=== PATIENT | male | born 1975 | race Caucasian/White ===

== ENCOUNTER → 2019-02-11 | Outpatient (CLI) | payer BC, SELFPAY ==
[2015-03-07 12:46] VITALS: BMI 41.8
[2019-02-11 09:59] LABS: Hematocrit 45.3 % (40-54); Hemoglobin 15.5 g/dl (13.0-16.5); Mean Corp Hgb Conc 34.2 g/gl (32-36); Mean Corpuscular Hgb 29.8 pg (27.0-32.0); Mean Corpuscular Volume 87.1 fL (80-94); Mean Platelet Vol. 9.8 fl (6.2-12.0); Platelet Count 224 K/mm3 (150-450); RBC Distribution Width CV 13.7 % (11.6-14.6); RBC Distribution Width SD 43.5 fl (35.1-43.9); White Blood Count 12.2 K/mm3 (4.4-11.0)
[2019-02-11 10:01] LABS: Scan Indicated on CBC? Y/N NO
[2019-02-11 10:28] LABS: Anion Gap 6 (5-15); BUN 15 mg/dL (7-18); BUN/Creat Ratio 14.7 RATIO (10-20); Calcium,Total 8.5 mg/dL (8.5-10.1); Chloride 103 mmol/L (98-107); Creatinine, Serum 1.02 mg/dL (0.70-1.30); EST Glomerular Filtration Rate 85 mL/min (>60); Est Glom Filt Rate - Afr Amer 103 mL/min (>60); Glucose 260 mg/dL (74-106); Potassium 3.7 mmol/L (3.5-5.1); Sodium Level 137 mmol/L (136-145)
== END | disposition home or self-care (01) ==
LOC: LAB.FUTURE 09:07
PROVIDERS: Referring Provider Orthopaedic Surgery; Visit Provider Orthopaedic Surgery
DX: Z01.818 Encounter for other preprocedural examination (principal); E08.21 Diabetes mellitus due to underlying condition with diabetic nephropathy
CPT/HCPCS: 36415; 80048; 83036; 85027

== ENCOUNTER → 2019-04-25 14:35 | Outpatient (CLI) | payer BC, SELFPAY ==
[2015-03-07 12:46] VITALS: BMI 41.8
--- NOTE | 2019-04-25 15:00 | EKG12_ITS ---
Test Reason : PRE-OP Blood Pressure : / mmHG Vent. Rate : 090 BPM Atrial Rate : 090 BPM P-R Int : 156 ms QRS Dur : 086 ms QT Int : 350 ms P-R-T Axes : 061 073 033 degrees QTc Int : 428 ms Normal sinus rhythm Normal ECG Confirmed by ELVIS MAGAÑA, LEBRON ([id number]), editor house organ MAREK MOREL ([id number]) on 04/29/2019 11:13:50 AM Referred By: Omar Tucker Confirmed By:LEBRON LEAL MD
[2019-04-25 15:32] LABS: Absolute Neutrophil Count 6.2 X10^3/uL (2.0-7.7); Basophil# 0.08 X10^3/uL; Basophil% 0.8 % (0-1); Eosinophil# 0.44 X10^3/uL; Eosinophils% 4.2 % (0-5); Hematocrit 44.7 % (40-54); Hemoglobin 15.1 g/dL (13.0-16.5); Mean Corp Hgb Conc 33.8 g/dL (32-36); Mean Corpuscular Hgb 30.1 pg (27.0-32.0); Mean Corpuscular Volume 89.2 fL (80-94); Mean Platelet Vol. 9.7 fl (6.2-12.0); Monocyte# 0.93 X10^3/uL; NRBC Flagged by Analyzer 0 % (0-5); Neutrophil # 6.17 X10^3/uL (2.7-7.7); Neutrophil % 59.5 % (47-70); Platelet Count 253 K/mm3 (150-450); RBC Distribution Width CV 13.6 % (11.6-14.6); RBC Distribution Width SD 44.1 fl (35.1-43.9); Red Blood Count 5.01 M/mm3 (4.6-6.2); White Blood Count 10.4 K/mm3 (4.4-11.0)
[2019-04-25 16:02] LABS: Anion Gap 9 (5-15); BUN 13 mg/dL (7-18); BUN/Creat Ratio 11.3 RATIO (10-20); Calcium,Total 8.8 mg/dL (8.5-10.1); Chloride 107 mmol/L (98-107); Creatinine, Serum 1.15 mg/dL (0.70-1.30); EST Glomerular Filtration Rate 74 mL/min (>60); Est Glom Filt Rate - Afr Amer 89 mL/min (>60); Glucose 277 mg/dL (74-106); Potassium 4.1 mmol/L (3.5-5.1); Sodium Level 140 mmol/L (136-145)
== END ==
PROVIDERS: Referring Provider Physician Assistant; Visit Provider Physician Assistant
DX: Z01.810 Encounter for preprocedural cardiovascular examination (principal); Z01.818 Encounter for other preprocedural examination; E11.9 Type 2 diabetes mellitus without complications
CPT/HCPCS: 36415; 80048; 85025; 93005

== ENCOUNTER 2019-05-21 11:00 | Outpatient (RCR) | payer BC, SELFPAY ==
--- NOTE | 2019-05-07 11:59 | HP.PTEVAL ---
Patient's Visit Information WHITNEY BUCKLEY is a 44 year old M referred to Physical Therapy by Omar Tucker PA-C with a diagnosis of L knee pain. Date of Evaluation: 05/07/19 Physical Therapist: Savi Carcamo DPT - Visit Plan Frequency: 1x/Week Duration: 4 Weeks Plan: Focus on LE/core s/s, gait & stair training, improving ROM, and decreasing pain. 05/07/19 HEP Prescribed: Heel Prop, Seated Heel Slide, Supine Heel Slide, SLR, Quad Sets - Subjective Findings: Knee surgery - arthroscopy (same day op) last (05/01/19) L knee. Removed compression stocking yesterday (05/06/19). Neuropathy in B feet as long as I can remember - DM, RLS, Crrently. Orthoscopy - outpatient surgery. 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 Gradually gottn better. Reports to be performing therapy exercises at home gotten from YouTube. 2 story home - usually stays downstairs, 30 steps upstairs, pain & issues asc/desc. 4-5 steps into the house. Current pain 6/10. Worst 8/10 Aggravating factors: stairs, walking, sitting, sleeping. Best: 3/10 Relieving factors: ice, home exercises. Describes pain being there in front of knee. Pain in entire L LE as radiating prior to operation. Intermittent feeling of heaviness at top of knee. Reports long hx of N/T. Currently sleeps in a recliner, wakes up stiff in the mornings. Home exercise: Stairs, walking around the driveway. Currently, just sitting at home mostly. Does have help at home. PMH/meds: no significant changes. Follow-Up w/ surgeon 05/14/19 - Objective Posture: FH, RS corrected w/ V/C, but not maintained. Stairs: asc - reciprocal pattern w/ excessive use of both HR, used toes & HR's to proprel self to next step, R foot pronation. Desc - lacked eccentric control, reciprocal pattern. Was educated on asc/desc stairs slower/properly. Gait: decreased arianna, slight toe-out, pes planus- no AD. HR/TR: 50% diminished w/ pain (B UE support). SLS: L - unable d/t pain- full weight shift. ROM: Ankle Df 5 degrees, PF 15 degrees, Eversion 20 degrees Inversion 15 degrees, Knee flex 65 degrees ext 6 degrees, Hip WFL. Strength: Ankle DF/PF 4+/5, Eversion/Inversion 3+/5 (painful), Knee - Not tested d/t pain, Hip: 5/5 t/o, Core Fair. Flexibility: Gastroc severe, Hamstring severe. Sensation: diminshed at L pinky toe to gross B touch, all others WNL. Incision: no signs of infection - healing appropriately. Palpation: TTP at plateau anterior. Giirth: Patella 44 cm, 6cm above 53 cm, 6 cm below 41 cm - Goals Goal 1:: Pt. will be I w/ HEP & progression Goal Time Frame: 2-4 Weeks Goal 2:: Pt. will maintain proper posture t/o tx session to demo increased core s/s Goal Time Frame: 4-6 Weeks Goal 3:: Pt. will be able to reach 120 knee flexion ROM Goal Time Frame: 4-6 Weeks Goal 4:: Pt. will be able to demo 5/5 strength throughout L LE Goal Time Frame: 4-6 Weeks Goal 5:: Pt. will amb. >300 ft. w/ normalized gait pattern Goal Time Frame: 4-6 Weeks Goal 6:: Pt. will asc/desc stairs w/ reciprocal pattern & use of no HR Goal Time Frame: 4-6 Weeks - Rehabilitation Potential Physical Therapy Diagnosis: s/p presents w/ hypomobility, poor posture decrease L LE ROM, edema, antlagic gait, and pain which leads to decreased ability to complete work related activites. Rehabilitation Potential: Good - Anticipated Interventions Patient/Client Instruction: Educate patient on: Condition, Plan of Care For the Purpose of:: To decrease pain Therapeutic Exercise to Include: Strength training, Endurance training, Balance training, Body mechanics, Postural training, Flexibilty training, Gait and locomotor training, Passive ROM, Active ROM, Dynamic Lumbar Stabilization For the Purpose of:: To improve muscle performance and motor function Functional Training to Include: Gait training For the Purpose of:: To improve ability to perform ADL's TENS: Yes Cryotherapy (ice pack, ice massage): Yes Thermo therapy (hot pack): Yes Thank you for the opportunity to evaluate your patient. For Medicare and Medicare HMO plans, please review the plan of care and approve it. It will need to be FAXED BACK to us at [phone] for Medicare purposes. For Medicare only, by signing this I certify the plan of care. Please let me know if there are questions or concerns regarding this plan of care. Physician Signature: Date:
--- NOTE | 2019-07-23 10:38 | HP.PT.NRP ---
HP - Discharge Summary (1) - Patient Information WHITNEY BUCKLEY was seen in my office for initial evaluation on 05/07/19. The following Plan of Care was established for this patient: Initial Frequency: 1x/Week Initial Duration: 4 Weeks - Anticipated Interventions Patient/Client Instruction: Educate patient on: Condition, Plan of Care For the Purpose of:: To decrease pain Therapeutic Exercise to Include: Strength training, Endurance training, Balance training, Body mechanics, Postural training, Flexibilty training, Gait and locomotor training, Passive ROM, Active ROM, Dynamic Lumbar Stabilization For the Purpose of:: To improve muscle performance and motor function Functional Training to Include: Gait training For the Purpose of:: To improve ability to perform ADL's TENS: Yes Cryotherapy (ice pack, ice massage): Yes Thermo therapy (hot pack): Yes This patient was last seen in our office . Pertinent comments regarding their Physical therapy will appear below: Patient has not attended therapy in over 8 weeks, appropriate for d/c and return to MD for further evaluation as needed. At this point I will be discontinuing this patient from physical therapy. I would be happy to see this patient again in the future if found appropriate by the physician. Thank you! THEODORE PerezT
== END 2019-05-21 19:00 | disposition home or self-care (01) ==
LOC: PT 11:00
PROVIDERS: Referring Provider Physician Assistant; Visit Provider Physician Assistant
DX: M17.12 Unilateral primary osteoarthritis, left knee (principal); S83.232D Complex tear of medial meniscus, current injury, left knee, subsequent encounter
CPT/HCPCS: 97110; 97161

== ENCOUNTER 2019-11-27 17:25 | Emergency (ER) | payer BC, SELFPAY ==
[2019-11-27 17:25] VITALS: BP 160/107; PULSE 108; RESP 16; TEMP 36.7; O2SAT 96; BMI 36.3
--- NOTE | 2019-11-27 18:32 | RAD_ITS ---
STUDY: X-RAY - LEFT FOOT CLINICAL: Male, 44 years old. Concern for osteomyelitis, 1st toe TECHNIQUE: 2 view(s) of the foot. COMPARISON: None. FINDINGS: There is a plantar calcaneal spur. Normal visualized subtalar, talonavicular, calcaneocuboid, tarsal and tarsometatarsal articulations. Normal metatarsi. Normal metatarsophalangeal joint of the great toe. Normal tibial and fibular sesamoid bones. Normal interphalangeal joint of the great toe. Normal phalanges of the great toe. Normal second through fifth metatarsophalangeal joints. Normal interphalangeal joints and phalanges of the lesser toes. The soft tissue structures are unremarkable. RAD/Foot 2 Views IMPRESSION: Limited 2 view study of the left foot shows no acute abnormality or definite destructive lesion. Electronically Signed: Tobin Valverde MD at 18:44 EDT , Service support ,
[2019-11-27 18:48] LABS: ALB/GLOB Ratio 0.8 RATIO (0.9-2.4); AST(SGOT) 19 U/L (15-37); Absolute Lymphocyte Count 3.41 X10^3/uL (0.83-4.51); Absolute Neutrophil Count 7.6 X10^3/uL (2.0-7.7); Alanine Aminotransfer ALT/SGPT 42 U/L (16-61); Albumin, Serum 3.4 g/dL (3.2-5.0); Alkaline Phosphatase 154 U/L (45-117); Anion Gap 8 (5-15); BUN 8 mg/dL (7-18); BUN/Creat Ratio 7.5 RATIO (10-20); Basophil% 0.8 % (0-1); Calcium,Total 8.7 mg/dL (8.5-10.1); Chloride 100 mmol/L (98-107); Creatinine, Serum 1.07 mg/dL (0.70-1.30); EST Glomerular Filtration Rate 80 mL/min (>60); Eosinophil# 0.44 X10^3/uL; Eosinophils% 3.5 % (0-5); Est Glom Filt Rate - Afr Amer 97 mL/min (>60); Glucose 360 mg/dL (74-106); Hematocrit 49.8 % (40-54); Hemoglobin 16.7 g/dL (13.0-16.5); Lymphocyte # 3.41 X10^3/ul (4.0); Lymphocyte % 27.2 % (19-41); Mean Corp Hgb Conc 33.5 g/dL (32-36); Mean Corpuscular Hgb 29.8 pg (27.0-32.0); Mean Corpuscular Volume 88.8 fL (80-94); Mean Platelet Vol. 9.5 fl (6.2-12.0); Monocyte# 0.82 X10^3/uL; Monocyte% 6.5 % (0-10); NRBC Flagged by Analyzer 0 % (0-5); Neutrophil % 60.8 % (47-70); Platelet Count 251 K/mm3 (150-450); Potassium 4.1 mmol/L (3.5-5.1); Protein, Total 7.4 g/dL (6.4-8.2); RBC Distribution Width CV 13.7 % (11.6-14.6); RBC Distribution Width SD 43.9 fl (35.1-43.9); Red Blood Count 5.61 M/mm3 (4.6-6.2); Sodium Level 135 mmol/L (136-145); White Blood Count 12.5 K/mm3 (4.4-11.0)
[2019-11-27 19:01] LABS: Erythrocyte Sedimentation Rate 27 mm/hr (0-15)
--- NOTE | 2019-11-27 19:12 | ED.DCSUM_ITS ---
History of Present Illness Chief Complaint: Cellulitis Narrative: Patient is a 44-year-old male with history of poorly controlled diabetes mellitus presenting with a wound to his left great toe. Patient states he was wearing tight fitting socks and his son's wedding 2 weeks ago. Since then he is noticed he is had a blister and wound at the distal aspect of his left great toe. He does not have significant pain with it. He does have neuropathy symptoms it is hard to tell. They did an x-ray which showed possible early myelitis. Patient was sent to the emergency room for further evaluation. Patient denies any drainage from the wound. He has been putting bacitracin ointment on it and soaking it. Patient actually feels that the toe is been getting slightly better. He did have redness from the base of the great toe distally but that seems to improved. He denies any prior history of osteomyelitis. He denies any systemic symptoms such as fever, chills, nausea, vomiting or malaise. 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 Past Medical History - Allergies and Home Meds Allergies/Adverse Reactions: Allergies No Known Allergies Allergy (Verified 11/27/19 17:27) Primary Care Physician: Kale Xavier NP-C [Primary Care Provider] - Past Medical History: - - Diabetes mellitus Surgical History: - - plastic surgery of scalp, sleep apnea deviated septal surgery Smoking Status: Current every day smoker - Family History Maternal Family History: Reports: No pertinent history, - - diabetes, skin abcess in skin Paternal Family History: Reports: - - frontal lobe dementia Review of Systems General: Denies: Chills, Fever, Sweats Eyes: Denies: Visual changes - bilaterally, Diplopia ENT: Denies: Rhinorrhea, Sore throat Cardiovascular: Denies: Chest pain, Palpitations Respiratory: Denies: Dyspnea, Cough, Dyspnea on exertion Gastrointestinal: Denies: Abdominal pain, Nausea, Vomiting, Diarrhea, Melena, Hematochezia Genitourinary: Denies: Dysuria, Hematuria, Frequency Musculoskeletal: Denies: Back pain, Extremity Pain Skin: Reports: Wounds - Left great toe. Denies: Rash Neurological: Denies: Headache, Weakness, Numbness Physical Exam Vital Signs/Narrative: Vital Signs Temp Pulse Resp BP Pulse Ox 11/27/19 17:25 98.1 F 108 H 16 160/107 H 96 Inital Vital Signs reviewed: Yes General: Well nourished, Well developed, No Acute Distress Head: Normocephalic, Atraumatic Eyes: Perrl, EOMI ENT: Moist mucous membranes, No rhinorrhea Neck: Supple, Nontender Cardiovascular: Regular rate, Regular rhythm, No murmurs, - - 1+ bilateral DP pu lses, 2-second capillary refill of the toes Respiratory: No distress, CTA bilaterally, Chest nontender Abdomen: Soft, Nontender, Nondistended Back: Nontender, Normal Inspection Extremities: Nontender, No edema Skin: Normal color, - - White discoloration of the left great toe distal pad, almost appears macerated. No active drainage. No significant tenderness, fluctuance or erythema.. At the very tip of the second left toe there is a small 2 mm area of erythema, mild tenderness to palpation associated with it.. Negative for: Rash - Chronic skin changes consistent with venous stasis of the lower extremities bilaterally Neurological: Alert, Oriented x3, Cranial nerves II-XII grossly intact, Normal Strength, Normal Sensation Psychological: Normal affect, Normal Mood Diagnostic/Tx/Re-eval Clinical Impression(s) from Imaging Studies Foot X-Ray 11/27/19 18:32 IMPRESSION: Limited 2 view study of the left foot shows no acute abnormality or definite destructive lesion. Electronically Signed: Tobin Valverde MD at 18:44 EDT , Service support , Laboratory Data 11/27/19 11/27/19 18:24 18:24 WBC 12.5 H RBC 5.61 Hgb 16.7 H Hct 49.8 MCV 88.8 MCH 29.8 MCHC 33.5 RDW Std Deviation 43.9 RDW Coeff of Heather 13.7 Plt Count 251 MPV 9.5 Immature Gran % (Auto) 1.200 H Neut % (Auto) 60.8 Lymph % (Auto) 27.2 Loving % (Auto) 6.5 Eos % (Auto) 3.5 Baso % (Auto) 0.8 Absolute Neuts (auto) 7.6 Absolute Lymphs (auto) 3.41 Nucleated RBC % 0 ESR 27 H Sodium 135 L Potassium 4.1 Chloride 100 Carbon Dioxide 27.0 Anion Gap 8 BUN 8 Creatinine 1.07 Estim Creat Clear Calc 100.60 Est GFR (MDRD) Af Amer 97 Est GFR (MDRD) Non-Af 80 BUN/Creatinine Ratio 7.5 L Glucose 360 H Calcium 8.7 Total Bilirubin 0.40 AST 19 ALT 42 Alkaline Phosphatase 154 H C-React Prot Ext Range 15.90 H Total Protein 7.4 Albumin 3.4 Globulin 4.0 Albumin/Globulin Ratio 0.8 L - Medical Decision Making Patient is evaluated for a wound to his left great toe. Patient is very well- appearing. He had an outpatient x-ray that was concerning for possible early osteomyelitis. Patient does have a chronic wound on his left great toe which does not look terribly bad to me. I did check blood work and screening for osteomyelitis including a CRP, ESR white blood cell count. I did repeat an x- ray as we do not have access to the x-rays that were performed at [facility] [place]. Her x-ray did not show any findings consistent with acute bony abnormalities.His white blood cell count was 12.5. There is no shift. Of BMP is remarkable for a glucose of 360 however patient is a normal anion gap of 8. His ESR was 27 and his CRP is 15.9. Discussed the case with Dr. Davis, who was consulted from [facility] earlier today. He is not personally familiar with the patient did not examine him. Based on my description and his lab work he does feel the patient is a good candidate for outpatient follow-up. He will be instructed to call the office tomorrow to set up same day of appointment or to be seen on Sunday. Patient be started on Keflex 500 mg 3 times a day. His gait is in a postop shoe. He is instructed on Betadine washes. While patient ultimately might have very early osteomyelitis I do not think he requires an emergent inpatient evaluation. Podiatry is agreeable with this. Patient is also agreeable with this plan. Patient is counseled on signs and symptoms requiring return to the emergency room. Patient verbalizes agreement and understand this plan. Patient discharged home in stable and improved condition. ED Disposition - Plan for ED Patient: Disposition: Home or Assisted Living Diagnosis: Open wound of left great toe Instructions: ED Foot Care Diabetic Prescriptions: Cephalexin [Keflex] 500 mg PO Q8 #21 cap Prescription Printed Referrals: Turner Davis DPM [STAFF PHYSICIAN] - 1 Day for another exam Additional Instructions: Please do Betadine washes of your foot twice a day. Please wear your postop shoe as much as possible to keep all the pressure off your great toe. Take antibiotics as prescribed. If you do not hear from the nurse at the office tomorrow, please call to schedule appointment either tomorrow or Sunday. Please return the emergency room with any worsening symptoms including fever or redness streaking up the foot. Is very important that you control your blood sugars to the best of your ability to help wound healing.
[2019-11-27] MEDS: Cephalexin 250 MG Capsule 500 MG PO (19:30)
[2019-11-27 19:32] VITALS: BP 148/87; PULSE 95; RESP 16; O2SAT 99
== END 2019-11-27 19:53 | disposition home or self-care (01) ==
PROVIDERS: Emergency Provider Emergency Medicine; PCP Nurse Practitioner Primary Care
DX: S91.102A Unspecified open wound of left great toe without damage to nail, initial encounter (principal); I87.8 Other specified disorders of veins; E11.9 Type 2 diabetes mellitus without complications; F17.200 Nicotine dependence, unspecified, uncomplicated; X58.XXXA Exposure to other specified factors, initial encounter; Y93.9 Activity, unspecified; Y92.89 Other specified places as the place of occurrence of the external cause; Y99.9 Unspecified external cause status
CPT/HCPCS: 73620; 80053; 85025; 85652; 86140; 87040; 99284; A4216